=== PATIENT | female | born 1930 | race Caucasian/White ===

== ENCOUNTER 2017-07-06 11:45 | Emergency (ER) | payer MEDICARE, OTHER ==
[2017-07-06 14:40] LABS: ABS Basophils 0.1 10^3/ul (0-0.2); ABS Eosinophils 0.1 10^3/ul (0-0.6); ABS Lymphocytes 1.7 10^3/ul (1.0-4.8); ABS Monocytes 0.4 10^3/ul (0-0.8); ABS Neutrophils 3.6 10^3/ul (1.5-7.7); ABS Nucleated RBC 0 10^3/ul; Hematocrit 40 % (35-47); Hemoglobin 13.2 g/dl (12.0-16.0); Lymphocyte % 28.6 % (25-47); Mean Corpuscular HGB Conc 34 g/dl (31-36); Mean Corpuscular Hemoglobin 32 pg (27-31); Mean Corpuscular Volume 94 fL (80-97); Mean Platelet Volume 9 um3 (7.4-10.4); Nucleated Red Blood Cells % 0; Platelet Count 192 10^3/ul (150-450); Red Blood Count 4.19 10^6/ul (4.0-5.4); Red Cell Distribution Width 14 % (10.5-15); White Blood Count 5.8 10^3/ul (3.5-10.8)
[2017-07-06] MEDS ORDERED: Al Hydrox/Mg Hydrox/Simet LIQ* 30 ML UDC PO ONE (16:07)
[2017-07-06] MEDS ORDERED: Lidocaine 2% VISCOUS* 15 ML UDC PO ONE (16:07)
[2017-07-06] MEDS ORDERED: traMADol TAB* 50 MG PO ONE (17:34)
--- NOTE | 2017-07-06 18:18 | RAD ---
INDICATION: Chest pain. COMPARISON: Comparison is made with a prior study from July 06, 2015. TECHNIQUE: A portable view of the chest was obtained. FINDINGS: The heart appears slightly prominent likely due to underinflation of the lungs. Several surgical clips project over the right lung apex. The lungs are underinflated. There is mild increased density which projects over the lateral aspect of the right upper lobe which is appears unchanged. The lungs are otherwise clear. No pleural effusion is seen. IMPRESSION: NO EVIDENCE FOR ACUTE DISEASE.
[2017-07-06 18:25] LABS: Urine Appearance Clear; Urine Blood Negative (Negative); Urine Color Yellow; Urine Ketones Trace (Negative); Urine Protein Negative (Negative); Urine Specific Gravity 1.009 (1.010-1.030); Urine Urobilinogen Negative (Negative)
[2017-07-06 19:24] VITALS: BP 168/77
--- NOTE | 2017-07-06 22:57 | ED ---
Yuliana Ramos Gabriel, scribed for Jeffrey West MD on 07/06/17 at 1558 . Abdominal Pain/Female - HPI Summary HPI Summary: This patient is a 87 year old F presenting to [facility] with a chief complaint of ABD pain that began a few days ago. The patient rates the pain 6/10 in severity and radiating into her chest. She states the pain will wax and wane for hours. Symptoms aggravated by any food intake. Symptoms alleviated by peppermint candy. Patient reports nausea. Patient denies v/d. The patient compares the symptoms to indigestion. pt states she drinks greater than 5 cups of coffee daily. - History of Current Complaint Chief Complaint: EDAbdPain Stated Complaint: ABD PAIN Time Seen by Provider: 07/06/17 15:29 Hx Obtained From: Patient Onset/Duration: Lasting Days, Still Present Timing: Intermittent Episode Lasting - hours Severity Currently: Moderate Pain Intensity: 5 Pain Scale Used: 0-10 Numeric Location: Epigastric Radiates: Yes Radiates to: Chest Alleviating Factor(s): Other: - peppermint candy Associated Signs and Symptoms: Positive: Nausea. Negative: Vomiting, Diarrhea Allergies/Adverse Reactions: Allergies Allergy/AdvReac Type Severity Reaction Status Date / Time Alendronate [From Fosamax] Allergy Intermediate Hives Verified 07/06/15 08:37 Codeine Allergy Intermediate Hallucinati Verified 07/06/15 08:37 ons PMH/Surg Hx/FS Hx/Imm Hx Sensory History: Reports: Hx Cataracts, Hx Contacts or Glasses, Hx Hearing Aid, Hx Hearing Problem Opthamlomology History: Reports: Hx Cataracts, Hx Contacts or Glasses Neurological History: Denies: Hx Developmental Delay, Hx Headaches, Hx Migraine, Hx Nerve Disease Psychiatric History: Denies: Hx Oppositional [place] Disorder - Surgical History Surgery Procedure, Year, and Place: right shoulder surg. back surg. appendectomy. tubal ligation. left great toenail removed. right clavicle removed. bilateral cateracts. right foot surg. right rib removed Infectious Disease History: No Infectious Disease History: Denies: Traveled Outside the [place] in Last 30 Days - Family History Known Family History: Negative: Hypertension, Renal Disease, Respiratory Disease, Seizure Disorder - Social History Alcohol Use: None Substance Use Type: Reports: None Smoking Status (MU): Former Smoker Review of Systems Positive: Abdominal Pain, Nausea. Negative: Vomiting, Diarrhea Negative: Slurred Speech All Other Systems Reviewed And Are Negative: Yes Physical Exam - Summary Physical Exam Summary: Appearance: Well-appearing, no distress, Well-nourished Skin: Warm, color reflects adequate perfusion Head: Normal Head/Face inspection Eyes: Conjunctiva clear ENT: Normal inspection Neck: Supple, no nodes, no JVD. Respiratory: Lungs clear, Normal breath sounds, no respiratory distress Cardio: RRR, No murmur, pulses normal, brisk capillary refill Abdomen: soft, nontender, no guarding, no rebound Bowel sounds: present Musculoskeletal: Strength Intact/ ROM intact. No calf tenderness. No edema. Neuro: Alert, muscle tone normal, facial symmetry, speech normal, sensory/motor intact Psychological: Normal Triage Information Reviewed: Yes Vital Signs On Initial Exam: Initial Vitals Temp Pulse Resp BP Pulse Ox 97.2 F 67 18 151/62 97 07/06/17 12:01 07/06/17 12:01 07/06/17 12:01 07/06/17 12:01 07/06/17 12:01 Vital Signs Reviewed: Yes Diagnostics - Vital Signs Vital Signs Temp Pulse Resp BP Pulse Ox 07/06/17 15:33 66 100 07/06/17 15:31 150/70 07/06/17 15:11 97.2 F 64 18 150/64 98 07/06/17 12:01 97.2 F 67 18 151/62 97 - Laboratory Lab Results: Lab Results 07/06/17 07/06/17 07/06/17 Range/Units 14:32 14:32 14:32 WBC 5.8 (3.5-10.8) 10^3/ul RBC 4.19 (4.0-5.4) 10^6/ul Hgb 13.2 (12.0-16.0) g/dl Hct 40 (35-47) % MCV 94 (80-97) fL MCH 32 H (27-31) pg MCHC 34 (31-36) g/dl RDW 14 (10.5-15) % Plt Count 192 (150-450) 10^3/ul MPV 9 (7.4-10.4) um3 Neut % (Auto) 62.6 (38-83) % Lymph % (Auto) 28.6 (25-47) % [place] % (Auto) 6.7 (1-9) % Eos % (Auto) 1.0 (0-6) % Baso % (Auto) 1.1 (0-2) % Absolute Neuts (auto) 3.6 (1.5-7.7) 10^3/ul Absolute Lymphs (auto) 1.7 (1.0-4.8) 10^3/ul Absolute Monos (auto) 0.4 (0-0.8) 10^3/ul Absolute Eos (auto) 0.1 (0-0.6) 10^3/ul Absolute Basos (auto) 0.1 (0-0.2) 10^3/ul Absolute Nucleated RBC 0 10^3/ul Nucleated RBC % 0 Sodium 137 (133-145) mmol/L Potassium 4.1 (3.5-5.0) mmol/L Chloride 104 (101-111) mmol/L Carbon Dioxide 29 (22-32) mmol/L Anion Gap 4 (2-11) mmol/L BUN 16 (6-24) mg/dL Creatinine 0.72 (0.51-0.95) mg/dL Est GFR ( Amer) 99.0 (>60) Est GFR (Non-Af Amer) 77.0 (>60) BUN/Creatinine Ratio 22.2 H (8-20) Glucose 99 (70-100) mg/dL Lactic Acid 1.0 (0.5-2.0) mmol/L Calcium 10.2 (8.6-10.3) mg/dL Total Bilirubin 0.60 (0.2-1.0) mg/dL AST 20 (13-39) U/L ALT 13 (7-52) U/L Alkaline Phosphatase 57 (34-104) U/L Total Creatine Kinase 75 (10-223) U/L C-Reactive Protein < 1.00 (< 5.00) mg/L Total Protein 7.2 (6.4-8.9) g/dL Albumin 4.4 (3.2-5.2) g/dL Globulin 2.8 (2-4) g/dL Albumin/Globulin Ratio 1.6 (1-3) Lipase < 10 L (11.0-82.0) U/L Result Diagrams: 07/06/17 14:32 07/06/17 14:32 Lab Statement: Any lab studies that have been ordered have been reviewed, and results considered in the medical decision making process. - Radiology CXR Radiology Interpretation Completed By: Radiologist - NO EVIDENCE FOR ACUTE DISEASE. ED physician has reviewed this radiology report. - EKG 1553 Cardiac Rate: NL EKG Rhythm: Sinus Rhythm - at 64 BPM EKG Interpretation: normal axis, intervals normal, no st/t wave changes 1729 Cardiac Rate: NL EKG Rhythm: Sinus Rhythm - at 75 BPM EKG Interpretation: normal axis, intervals normal, no st/t wave changes Re-Evaluation - Re-Evaluation First Eval Change: Unchanged - Pt pain improved with PO antacids and analgesia. pt advised to decreased coffee intake. plan for antacids with PCP f/u. Abdominal Pain Fem Course/Dx - Diagnoses Differential Diagnosis: Positive: Diverticulitis, Gall Bladder Disease, Hepatitis, Irritable Bowel Syndrome, Pancreatitis, Peptic Ulcer Disease, Pneumonia Provider Diagnoses: Gastritis Discharge - Discharge Plan Condition: Improved Disposition: HOME Prescriptions: Dicyclomine CAP* [Bentyl CAP*] 10 mg PO TID PRN #10 cap PRN Reason: Pain Famotidine TAB* [Pepcid 20 MG TAB*] 20 mg PO BID #10 tab Patient Education Materials: Gastritis (ED) Referrals: Carlos PINEDA,Digna Kitchen [Primary Care Provider] - Additional Instructions: Please decrease your coffee intake. Please follow up with your Physician in 3-5 days for further evaluation and treatment. The documentation as recorded by the Yuliana escobar Gabriel accurately reflects the service I personally performed and the decisions made by , Jeffrey West MD.
== END 2017-07-06 19:25 | disposition home or self-care (01) ==
LOC: ED 11:45
DX: K29.70 Gastritis, unspecified, without bleeding (principal); Z87.891 Personal history of nicotine dependence; Z88.5 Allergy status to narcotic agent; Z88.8 Allergy status to other drugs, medicaments and biological substances
CPT/HCPCS: 36415; 71045; 80053; 81003; 81015; 82550; 83605; 83690; 84484; 85025; 86140; 87086; 93005; 99283; A9270-GY

== ENCOUNTER 2018-11-04 13:25 | Emergency (ER) | payer MEDICARE, OTHER ==
[2018-11-04] MEDS ORDERED: Acetaminophen TAB* 325 MG PO ONE (14:20)
--- NOTE | 2018-11-04 14:22 | ED ---
Lower Extremity - HPI Summary HPI Summary: Patient is an 88-year-old female who presents emergency department for right hip pain and right shoulder pain after mechanical fall that occurred just prior to arrival. Patient states she was getting out of her car at the gas station when her feet got tangled in her purse that was on the floor and she fell landing onto her right hip. She denies head injury or loss of consciousness. She is not anticoagulated. Patient denies prior current chest pain, shortness of breath, lightheadedness, dizziness. Symptoms are moderate in severity. Movement makes symptoms worse. Nothing makes symptoms - History of Current Complaint Chief Complaint: EDFall Stated Complaint: FALL Time Seen by Provider: 11/04/18 13:47 Hx Obtained From: Patient Pain Intensity: 8 - Allergies/Home Medications Allergies/Adverse Reactions: Allergies Allergy/AdvReac Type Severity Reaction Status Date / Time codeine Allergy Hallucinati Verified 11/04/18 13:30 ons alendronate sodium AdvReac Hives Verified 11/04/18 13:30 [From Fosamax] PMH/Surg Hx/FS Hx/Imm Hx Previously Healthy: Yes Sensory History: Reports: Hx Cataracts, Hx Contacts or Glasses, Hx Hearing Aid, Hx Hearing Problem Opthamlomology History: Reports: Hx Cataracts, Hx Contacts or Glasses Neurological History: Denies: Hx Developmental Delay, Hx Headaches, Hx Migraine, Hx Nerve Disease Psychiatric History: Denies: Hx Oppositional [place] Disorder - Surgical History Surgery Procedure, Year, and Place: right shoulder surg. back surg. appendectomy. tubal ligation. left great toenail removed. right clavicle removed. bilateral cateracts. right foot surg. right rib removed Infectious Disease History: No Infectious Disease History: Denies: Traveled Outside the [place] in Last 30 Days - Family History Known Family History: Positive: Non-Contributory Negative: Hypertension, Renal Disease, Respiratory Disease, Seizure Disorder - Social History Occupation: Retired Lives: With Family Alcohol Use: None Substance Use Type: Reports: None Smoking Status (MU): Former Smoker Review of Systems Cardiovascular: Negative Negative: Palpitations, Chest Pain Respiratory: Negative Negative: Shortness Of Breath Gastrointestinal: Negative Positive: Other - right hip and shoulder pain Skin: Negative Neurological: Negative All Other Systems Reviewed And Are Negative: Yes Physical Exam Triage Information Reviewed: Yes Vital Signs On Initial Exam: Initial Vitals Temp Pulse Resp BP Pulse Ox 98.4 F 69 20 147/67 98 11/04/18 13:28 11/04/18 13:28 11/04/18 13:28 11/04/18 13:28 11/04/18 13:28 Vital Signs Reviewed: Yes Appearance: Positive: Pain Distress - Pt. lying in bed in NAD. Appears uncomfortable but nontoxic. Family member present. Answers questions appropriately. Skin: Positive: Warm, Dry Head/Face: Positive: Normal Head/Face Inspection Eyes: Positive: Normal, EOMI, CIERA Neck: Positive: Supple Respiratory/Lung Sounds: Positive: Clear to Auscultation, Breath Sounds Present Cardiovascular: Positive: Normal, RRR Abdomen Description: Positive: Nontender, Soft Musculoskeletal: Positive: Other - Mild pain to posterior right shoulder. Pain at right buttocks. Good pedal pulse. No breaks in the skin. Neurological: Positive: Normal, Alert, Oriented to Person Place, Time, CN Intact II-III Psychiatric: Positive: Affect/Mood Appropriate Diagnostics - Vital Signs Vital Signs Temp Pulse Resp BP Pulse Ox 11/04/18 13:28 98.4 F 69 20 147/67 98 - Laboratory Result Diagrams: 11/04/18 14:29 11/04/18 14:29 Lab Statement: Any lab studies that have been ordered have been reviewed, and results considered in the medical decision making process. Lower Extremity Course/Dx - Course Course Of Treatment: Patient presenting for right hip injury and right shoulder injury after mechanical fall. She is afebrile with stable vital signs and overall well-appearing. Suspect possible right hip fracture. Patient was given a dose of Tylenol and basic labs and x-rays were ordered. X-ray of chest , shoulder, hip and pelvis are negative for acute findings, reading per radiology. Given patient's pain level, age and fall CT scan was ordered to evaluate for occult fracture. CT scan was negative for acute findings. Reexamination patient pain is improving. She is able to ambulate back from the bathroom without assistance bearing full weight on her right leg. We'll discharge patient home with her daughter. Advised ice intermittently. Tylenol for pain as directed. Will follow up closely with PCP and return to the ER if symptoms change or worsen. Patient and daughter understand and agree with plan. - Diagnoses Differential Diagnosis/HQI/PQRI: Positive: Contusion, Dislocation, Fracture ( Closed), Sprain, Strain Provider Diagnoses: Shoulder contusion, Contusion, hip Discharge - Sign-Out/Discharge Documenting (check all that apply): Patient Departure Patient Received Moderate/Deep Sedation with Procedure: No - Discharge Plan Condition: Improved Disposition: HOME Patient Education Materials: Shoulder Sprain (ED), Hip Contusion (ED) Referrals: Carlos PINEDA,Digna Kitchen [Primary Care Provider] - Additional Instructions: Follow up with PCP in 2-3 days Tylenol for pain as directed Ice intermittently Return to ER if symptoms change or worsen - Billing Disposition and Condition Condition: IMPROVED Disposition: Home
[2018-11-04 14:43] LABS: ABS Eosinophils 0.1 10^3/ul (0-0.6); ABS Lymphocytes 1.5 10^3/ul (1.0-4.8); ABS Monocytes 0.5 10^3/ul (0-0.8); ABS Neutrophils 2.7 10^3/ul (1.5-7.7); Eosinophil % 2.5 %; Hematocrit 39 % (35-47); Hemoglobin 12.7 g/dL (12.0-16.0); Lymphocyte % 30.6 %; Mean Corpuscular HGB Conc 33 g/dL (31-36); Mean Corpuscular Hemoglobin 31 pg (27-31); Mean Corpuscular Volume 94 fL (80-97); Mean Platelet Volume 9.2 fL (7.4-10.4); Nucleated Red Blood Cells % 0.1; Platelet Count 197 10^3/uL (150-450); Red Blood Count 4.13 10^6 /uL (3.70-4.87); Red Cell Distribution Width 14 % (10.5-15); White Blood Count 4.8 10^3/uL (3.5-10.8)
[2018-11-04 14:53] LABS: INR 1.06 (0.82-1.09)
[2018-11-04 15:17] LABS: Albumin 4.1 g/dL (3.2-5.2); Albumin/Globulin Ratio 1.6 (1-3); BUN/Creatinine Ratio 20.5 (8-20); Calcium 9.9 mg/dL (8.6-10.3); EGFR African American 91.5 (>60); EGFR Non-African American 75.6 (>60); Globulin 2.5 g/dL (2-4); Potassium 4.2 mmol/L (3.5-5.0); Total Bilirubin 0.6 mg/dL (0.2-1.0); Total Protein 6.6 g/dL (6.4-8.9)
[2018-11-04 17:06] VITALS: BP 153/60
== END 2018-11-04 17:05 | disposition home or self-care (01) ==
LOC: ED 13:25
DX: S40.011A Contusion of right shoulder, initial encounter (principal); S70.01XA Contusion of right hip, initial encounter; M25.551 Pain in right hip; Z88.6 Allergy status to analgesic agent; Z87.891 Personal history of nicotine dependence; W19.XXXA Unspecified fall, initial encounter; Y92.9 Unspecified place or not applicable
CPT/HCPCS: 36415; 71045; 72192; 80053; 84484; 85025; 85610; 99282; A9270-GY

== ENCOUNTER 2019-07-24 13:21 | Emergency (ER) | payer MEDICARE, OTHER ==
--- NOTE | 2019-07-24 16:29 | ED ---
Neurological HPI - HPI Summary HPI Summary: 89 y/o female presented to [facility] after seeing spots in her vision. At 1030 this morning she saw a pop up while on her computer that flashed at her, at which point she began experiencing sx. Family notes that this happens often, and pt notes it has improved since onset. She had a CAMPBELL in the room she described as "bearable" and had some photophobia in the room. She had a change in eye prescription 1 year ago and sees an strength and conditioning coach at [facility]. - History of Current Complaint Chief Complaint: EDEyeProblem Stated Complaint: SEEING FLASHING LIGHTS PER MATT Time Seen by Provider: 07/24/19 15:31 Hx Obtained From: Patient Current Severity: None Pain Intensity: 0 Pain Scale Used: 0-10 Numeric Character: Other: - spots in vision, CAMPBELL - Allergy/Home Medications Allergies/Adverse Reactions: Allergies Allergy/AdvReac Type Severity Reaction Status Date / Time codeine Allergy Hallucinati Verified 07/24/19 13:31 ons alendronate sodium AdvReac Hives Verified 07/24/19 13:31 [From Fosamax] Home Medications: Home Medications Acetaminophen [Tylenol Extra Strength] 500 mg PO Q6H PRN 07/24/19 [History Confirmed 07/24/19] Calcium Carbonate [Calcium] 500 mg PO DAILY 07/24/19 [History Confirmed 07/24/19 ] Ibuprofen TAB* [Advil TAB*] 200 mg PO Q6H PRN 07/24/19 [History Confirmed ] Mv-Min/Iron/Folic/Calcium/Vitk [Multivitamin Women] 1 tab PO DAILY 07/24/19 [ History Confirmed 07/24/19] Naproxen Sodium [Aleve] 220 mg PO BID PRN 07/24/19 [History Confirmed 07/24/19] Omeprazole 20 mg PO DAILY 07/24/19 [History Confirmed 07/24/19] PMH/Surg Hx/FS Hx/Imm Hx Sensory History: Reports: Hx Cataracts, Hx Contacts or Glasses, Hx Hearing Aid, Hx Hearing Problem Opthamlomology History: Reports: Hx Cataracts, Hx Contacts or Glasses Neurological History: Denies: Hx Developmental Delay, Hx Headaches, Hx Migraine, Hx Nerve Disease Psychiatric History: Denies: Hx Oppositional [place] Disorder - Surgical History Surgery Procedure, Year, and Place: right shoulder surg. back surg. appendectomy. tubal ligation. left great toenail removed. right clavicle removed. bilateral cateracts. right foot surg. right rib removed Infectious Disease History: No Infectious Disease History: Denies: Traveled Outside the [place] in Last 30 Days - Family History Known Family History: Negative: Hypertension, Renal Disease, Respiratory Disease, Seizure Disorder - Social History Alcohol Use: Rare Substance Use Type: Reports: None Smoking Status (MU): Former Smoker Review of Systems Positive: Photophobia, Other - spots in vision Positive: Headache All Other Systems Reviewed And Are Negative: Yes Physical Exam - Summary Physical Exam Summary: Constitutional: Well-developed, Well-nourished, Alert. (-) Distressed Skin: Warm, Dry HENT: Normocephalic; Atraumatic Eyes: Conjunctiva normal, EOMI, Visual rehman intact. PERRL. VA: 20/25 OD, 20/ 40 OS. Neck: Musculoskeletal ROM normal neck. (-) JVD, (-) Stridor, (-) Nuchal rigidity Cardio: Rhythm regular, rate normal, Heart sounds normal; Intact distal pulses; Radial pulses are 2+ and symmetric. (-) Murmur Pulmonary/Chest wall: Effort normal. (-) Respiratory distress, (-) Wheezes, (-) Rales Abd: Soft, (-) tenderness, (-) Distension, (-) Guarding, (-) Rebound Musculoskeletal: (-) Edema Neuro: Alert, Oriented x3; ambulates w steady gait Psych: Mood and affect Normal Triage Information Reviewed: Yes Vital Signs On Initial Exam: Initial Vitals Temp Pulse Resp BP Pulse Ox 99.0 F 77 19 185/84 99 07/24/19 13:26 07/24/19 13:26 07/24/19 13:26 07/24/19 13:26 07/24/19 13:26 Vital Signs Reviewed: Yes Procedures - Sedation Patient Received Moderate/Deep Sedation with Procedure: No Diagnostics - Vital Signs Vital Signs Temp Pulse Resp BP Pulse Ox 07/24/19 15:36 72 184/80 96 07/24/19 15:35 71 99 07/24/19 13:26 99.0 F 77 19 185/84 99 - Laboratory Lab Statement: Any lab studies that have been ordered have been reviewed, and results considered in the medical decision making process. Course/Dx - Course Course Of Treatment: 89 y/o F p/w visual disturbance (resolving). - hx similar , unclear cause. Likely induced by screen use/bright light. Visual acuity 20/40 , no eye pain. Do not suspect emergent cause of symptoms, has opthalmogy f/u - Diagnoses Provider Diagnoses: Visual disturbance Discharge ED - Sign-Out/Discharge Documenting (check all that apply): Patient Departure - Discharge Plan Condition: Stable Disposition: HOME Patient Education Materials: Visual Floaters (ED) Referrals: Carlos PINEDA,Digna Kitchen [Primary Care Provider] - Collin Casas MD [Medical Doctor] - Additional Instructions: You were seen in the emergency department for flashing lights in her eyes. Please follow up with her strength and conditioning coach. Please return for worsening symptoms. Please follow up with your primary care doctor in next 2-3 days and return to emergency department for worsening or concerning symptoms. It was a pleasure taking care of you today. - Billing Disposition and Condition Condition: STABLE Disposition: Home - Attestation Statements Document Initiated by Scribe: Yes Documenting Scribe: Jeffrey Zhou Provider For Whom Scribe is Documenting (Include Credential): Abbie Ellis Scribe Attestation: I, Jeffrey Zhou, scribed for Cafroyn T Salinas on 07/24/19 at 2303. Scribe Documentation Reviewed: Yes Provider Attestation: The documentation as recorded by the scribeJeffrey accurately reflects the service I personally performed and the decisions made by Abbie rivera Status of Scribe Document: Viewed
[2019-07-24 17:16] VITALS: BP 150/84
== END 2019-07-24 17:15 | disposition home or self-care (01) ==
LOC: ED 13:21
DX: H53.8 Other visual disturbances (principal); Z90.89 Acquired absence of other organs; Z98.51 Tubal ligation status; Z87.891 Personal history of nicotine dependence; Z79.899 Other long term (current) drug therapy; Z88.5 Allergy status to narcotic agent; Z88.8 Allergy status to other drugs, medicaments and biological substances
CPT/HCPCS: 99283